=== PATIENT | male | born 1965 | race Caucasian/White ===

== ENCOUNTER 2019-10-07 17:40 | Observation (INO) ==
[2019-10-07] MEDS ORDERED: Isovue-370 500 ML BOTTLE IVP ONE (18:03)
[2019-10-07] MEDS ORDERED: Morphine Sulfate 2 MG/ML SYRINGE IVP ONE ×2 (18:10→19:53)
[2019-10-07 18:36] LABS: Basophils # 0.1 K/mcL (0.0-0.2); Basophils % 0.5 %; Eosinophils % 0.2 %; Hematocrit 37.6 % (37.5-50.1); Hemoglobin 13.5 g/dL (12.9-16.9); Immature Granulocytes % 0.7 % (0-4); Lymphocytes # 2.2 K/mcL (0.6-4.6); Lymphocytes % 14.1 %; Mean Corpuscular HGB Conc 35.9 g/dL (31.6-35.5); Mean Corpuscular Hemoglobin 29.9 pg (28.0-33.3); Mean Corpuscular Volume 83.2 fL (83.0-100.0); Mean Platelet Volume 10.5 fL (9.4-12.4); Monocytes # 1.5 K/mcL (0.0-1.3); Monocytes % 9.8 %; Neutrophils # 11.5 K/mcL (1.6-8.9); Platelet Count 259 K/mcL (140-400); Red Blood Count 4.52 M/mcL (4.19-5.50); Red Cell Distribution Width 13.6 % (11.5-14.5); Segmented Neutrophils % 74.7 %; White Blood Count 15.3 K/mcL (4.3-11.1)
[2019-10-07 18:46] LABS: INR 1.1; Prothrombin Time 12.8 Seconds (9.4-12.1)
[2019-10-07 18:49] LABS: Activated Partial Thrombo Time 29.2 Seconds (26.0-36.0)
[2019-10-07 18:58] LABS: Calcium 10.2 mg/dL (8.6-10.3); Potassium 4.1 mEq/L (3.5-5.1)
[2019-10-07 18:59] LABS: Troponin I 0.03 ng/mL (< 0.04)
[2019-10-07 19:05] LABS: Albumin 4.4 g/dL (3.5-5.7); Albumin/Globulin Ratio 1.5 (1.1-2.2); Bilirubin,Direct 0.3 mg/dL (0.0-0.2); Bilirubin,Indirect 1.5 mg/dL (0.0-1.0); Bilirubin,Total 1.8 mg/dL (0.3-1.0); Total Protein 7.4 g/dL (6.4-8.9)
[2019-10-07] MEDS ORDERED: 0.9 % Sodium Chloride 500 ML IVC ONE (19:31)
[2019-10-07 19:45] LABS: Bilirubin,Urine Negative (Negative); Blood,Urine Negative (Negative); Clarity,Urine Clear (Clear); Color,Urine Yellow (Yellow); Glucose,Urine (UA) Normal (Normal); Ketones,Urine Negative (Negative); Leukocyte Esterase,Urine Negative (Negative); Nitrite,Urine Negative (Negative); Protein,Urine Negative (Neg-Trace); Specific Gravity,Urine 1.016 (1.010-1.025); Urobilinogen,Urine Normal (Normal)
[2019-10-07] MEDS ORDERED: 0.9 % Sodium Chloride 1,000 ML IVC ONE (20:17)
[2019-10-07] MEDS: Nicotine 14 MG PATCH.TD24 TD SCH (20:25)
[2019-10-07] MEDS ORDERED: Naloxone 0.4 MG/ML INJ IVP PRN (20:35)
[2019-10-07] MEDS ORDERED: 0.9 % Sodium Chloride 1,000 ML IVC SCH (20:45)
[2019-10-07 22:03] LABS: Hematocrit 34.8 % (37.5-50.1); Hemoglobin 12.2 g/dL (12.9-16.9); Mean Corpuscular HGB Conc 35.1 g/dL (31.6-35.5); Mean Corpuscular Hemoglobin 30.2 pg (28.0-33.3); Mean Corpuscular Volume 86.1 fL (83.0-100.0); Mean Platelet Volume 10.1 fL (9.4-12.4); Platelet Count 215 K/mcL (140-400); Red Blood Count 4.04 M/mcL (4.19-5.50); Red Cell Distribution Width 13.4 % (11.5-14.5); White Blood Count 15.4 K/mcL (4.3-11.1)
[2019-10-07] MEDS ORDERED: Ondansetron 4 MG/2 ML VIAL IVP PRN (22:06)
[2019-10-07] MEDS ORDERED: Acetaminophen 325 MG TABLET PO PRN (22:06)
[2019-10-07] MEDS: Gabapentin 300 MG CAPSULE PO SCH (22:45)
[2019-10-07] MEDS: *HR* OxyCODONE/APAP 10/325 TABLET PO SCH (22:45)
[2019-10-07] MEDS: *HR* Heparin 5,000 UNIT/ML VIAL SQ SCH (22:45)
[2019-10-08] MEDS ORDERED: Acetaminophen IV 1,000 MG/100 ML INFUS..BTL IVPB ONE (03:03)
[2019-10-08] MEDS ORDERED: methylPREDNISolone 125 MG/2 ML VIAL IVP ONE (04:49)
[2019-10-08] MEDS: *HR* Heparin 5,000 UNIT/ML VIAL SQ SCH ×3 (06:25→21:15)
[2019-10-08] MEDS: *HR* OxyCODONE/APAP 10/325 TABLET PO SCH ×3 (09:07→21:15)
[2019-10-08] MEDS: Lisinopril-HCTZ 20-12.5mg TABLET PO SCH (09:07)
[2019-10-08] MEDS: Gabapentin 300 MG CAPSULE PO SCH ×3 (09:08→21:15)
[2019-10-08] MEDS: Nicotine 14 MG PATCH.TD24 TD SCH (09:08)
[2019-10-08 09:24] LABS: Alanine Aminotransferase 29 Units/L (7-52); Albumin 3.7 g/dL (3.5-5.7); Albumin/Globulin Ratio 1.4 (1.1-2.2); Alkaline Phosphatase 60 Units/L (34-104); Aspartate Amino Transferase 26 Units/L (13-39); BUN/Creatinine Ratio 25 (6-26); Bilirubin,Total 2.8 mg/dL (0.3-1.0); Blood Urea Nitrogen 28 mg/dL (6-20); Calcium 9.2 mg/dL (8.6-10.3); Carbon Dioxide 24 mEq/L (23-29); Chloride 104 mEq/L (98-107); Globulin 2.6 g/dL (2.4-3.5); Glucose 134 mg/dL (70-105); Osmolality,Calculated 287 (280-300); Sodium 135 mEq/L (136-145); Total Protein 6.3 g/dL (6.4-8.9); eGFR For African Americans > 60 (> 60); eGFR For Non-African Americans > 60 (> 60)
[2019-10-08] MEDS ORDERED: FLOVENT IH SCH (10:00)
[2019-10-08 10:32] LABS: Hemoglobin 12.2 g/dL (12.9-16.9); Mean Corpuscular HGB Conc 35.9 g/dL (31.6-35.5); Mean Corpuscular Hemoglobin 30.1 pg (28.0-33.3); Mean Platelet Volume 10.7 fL (9.4-12.4); Platelet Count 204 K/mcL (140-400); Red Blood Count 4.05 M/mcL (4.19-5.50); Red Cell Distribution Width 13.4 % (11.5-14.5); White Blood Count 11.8 K/mcL (4.3-11.1)
[2019-10-08] MEDS: *HR* OxyCODONE ER (12 HR) 20 MG TABLET PO SCH (15:02)
[2019-10-09] MEDS: *HR* OxyCODONE ER (12 HR) 20 MG TABLET PO SCH (03:20)
[2019-10-09] MEDS: *HR* Heparin 5,000 UNIT/ML VIAL SQ SCH (05:36)
[2019-10-09 07:37] VITALS: BP 115/73
[2019-10-09 07:43] LABS: Hematocrit 32.5 % (37.5-50.1); Hemoglobin 11.2 g/dL (12.9-16.9); Mean Corpuscular HGB Conc 34.5 g/dL (31.6-35.5); Mean Corpuscular Hemoglobin 29.8 pg (28.0-33.3); Mean Corpuscular Volume 86.4 fL (83.0-100.0); Mean Platelet Volume 10.2 fL (9.4-12.4); Platelet Count 199 K/mcL (140-400); Red Blood Count 3.76 M/mcL (4.19-5.50); Red Cell Distribution Width 13.7 % (11.5-14.5); White Blood Count 17.9 K/mcL (4.3-11.1)
[2019-10-09 08:01] LABS: BUN/Creatinine Ratio 30 (6-26); Blood Urea Nitrogen 28 mg/dL (6-20); Calcium 8.9 mg/dL (8.6-10.3); Carbon Dioxide 26 mEq/L (23-29); Chloride 107 mEq/L (98-107); Glucose 115 mg/dL (70-105); Osmolality,Calculated 290 (280-300); Potassium 3.5 mEq/L (3.5-5.1); Sodium 137 mEq/L (136-145); eGFR For African Americans > 60 (> 60); eGFR For Non-African Americans > 60 (> 60)
[2019-10-09] MEDS ORDERED: predniSONE 20 MG TABLET PO SCH (09:00)
[2019-10-09] MEDS: *HR* OxyCODONE/APAP 10/325 TABLET PO SCH (09:27)
[2019-10-09] MEDS: Nicotine 14 MG PATCH.TD24 TD SCH (09:27)
[2019-10-09] MEDS: Gabapentin 300 MG CAPSULE PO SCH (09:27)
[2019-10-09] MEDS: Lisinopril-HCTZ 20-12.5mg TABLET PO SCH (09:28)
[2019-10-09] MEDS ORDERED: *HR* OxyCODONE/APAP 10/325 TABLET PO PRN (09:32)
[2019-10-09] MEDS ORDERED: Budesonide/Formoterol 160/4.5 1 PUFF INH IH SCH (10:00)
[2019-10-09] MEDS ORDERED: ADALIMUMAB 40 MG SQ SCH (13:24)
== END 2019-10-09 11:35 | disposition home or self-care (01) ==
LOC: 2ANU 17:40 → EMEROOARM 17:40 → SUATTDRO 20:31 → 2ANU 21:02
PROVIDERS: ADMIT Internal Medicine; ATTEND Family Medicine

== ENCOUNTER 2022-08-01 15:51 | Observation (INO) ==
[2022-08-01] MEDS ORDERED: 0.9 % Sodium Chloride 1,000 ML IVC ONE ×2 (15:58→17:33)
[2022-08-01] MEDS ORDERED: *HR* Ticagrelor 90 MG TABLET PO ONE (15:58)
[2022-08-01] MEDS ORDERED: *HR* Heparin 5,000 UNIT/ML VIAL IVP ONE (15:59)
[2022-08-01] MEDS ORDERED: Iopamidol - 370 200 ML INFUS..BTL ONE (16:00)
[2022-08-01] MEDS ORDERED: *HR* Midazolam HCl 2 MG/2 ML VIAL ONE (16:00)
[2022-08-01] MEDS ORDERED: *HR* Heparin 10,000 UNIT/10 ML VIAL ONE (16:00)
[2022-08-01] MEDS ORDERED: *HR* FentaNYL (PF) 100 MCG/2 ML VIAL ONE (16:00)
[2022-08-01] MEDS ORDERED: Heparin 1,000 UNITS/500 mL 500 ML ONE (16:00)
[2022-08-01] MEDS ORDERED: 0.9 % Sodium Chloride 2,000 ML ONE (16:00)
[2022-08-01] MEDS ORDERED: Nitroglycerin 1,000 MCG/5 ML VIAL IV ONE (16:00)
[2022-08-01] MEDS ORDERED: 0.9 % Sodium Chloride 1,000 ML ONE (16:02)
[2022-08-01 16:14] LABS: Basophils # 0.1 K/mcL (0.0-0.2); Basophils % 0.8 %; Eosinophils # 0.3 K/mcL (0.0-0.6); Eosinophils % 1.5 %; Hematocrit 42.9 % (37.5-50.1); Hemoglobin 14.8 g/dL (12.9-16.9); Immature Granulocytes % 1.9 % (0-4); Lymphocytes # 2.7 K/mcL (0.6-4.6); Lymphocytes % 16.2 %; Mean Corpuscular HGB Conc 34.5 g/dL (31.6-35.5); Mean Corpuscular Hemoglobin 30.6 pg (28.0-33.3); Mean Corpuscular Volume 88.6 fL (83.0-100.0); Mean Platelet Volume 9.2 fL (9.4-12.4); Monocytes # 1.4 K/mcL (0.0-1.3); Monocytes % 8.4 %; Neutrophils # 11.9 K/mcL (1.6-8.9); Platelet Count 242 K/mcL (140-400); Red Blood Count 4.84 M/mcL (4.19-5.50); Red Cell Distribution Width 14.3 % (11.5-14.5); Segmented Neutrophils % 71.2 %; White Blood Count 16.8 K/mcL (4.3-11.1)
[2022-08-01 16:29] LABS: INR 1.1; Prothrombin Time 12.7 Seconds (9.4-12.1)
[2022-08-01 16:31] LABS: Activated Partial Thrombo Time 30.6 Seconds (26.0-36.0)
[2022-08-01 16:32] LABS: Heparin anti-factor XA UFH < 0.04 IU/mL (0.30-0.70)
[2022-08-01 16:34] LABS: Alanine Aminotransferase 32 Units/L (7-52); Albumin 3.7 g/dL (3.5-5.7); Albumin/Globulin Ratio 1.4 (1.1-2.2); Alkaline Phosphatase 79 Units/L (34-104); Aspartate Amino Transferase 21 Units/L (13-39); BUN/Creatinine Ratio 13 (6-26); Bilirubin,Total 0.7 mg/dL (0.3-1.0); Blood Urea Nitrogen 20 mg/dL (6-20); Carbon Dioxide 23 mEq/L (23-29); Chloride 104 mEq/L (98-107); Globulin 2.7 g/dL (2.4-3.5); Glucose 94 mg/dL (70-105); Magnesium 1.6 mg/dL (1.6-2.6); Osmolality,Calculated 284 (280-300); Potassium 3.8 mEq/L (3.5-5.1); Sodium 136 mEq/L (136-145); Total Protein 6.4 g/dL (6.4-8.9)
[2022-08-01 16:35] LABS: Troponin I < 0.03 ng/mL (< 0.04)
[2022-08-01] MEDS ORDERED: Ondansetron 4 MG/2 ML VIAL IVP PRN (16:57)
[2022-08-01] MEDS ORDERED: Naloxone 0.4 MG/ML INJ IVP PRN (16:57)
[2022-08-01] MEDS ORDERED: Acetaminophen 325 MG TABLET PO PRN (16:57)
[2022-08-01] MEDS ORDERED: Iopamidol - 370 500 ML MLS IVP ONE ×2 (16:59→17:25)
[2022-08-01] MEDS ORDERED: Ringers Solution, Lactated 1,000 ML IVC SCH (17:00)
[2022-08-01] MEDS ORDERED: Ipratropium/Albuterol Neb 3 ML IH PRN (17:00)
[2022-08-01] MEDS ORDERED: 0.9 % Sodium Chloride 1,000 ML IV ONE (17:26)
[2022-08-01] MEDS ORDERED: *HR* Heparin 5,000 UNIT/ML VIAL IVP PRN ×2 (17:34)
[2022-08-01] MEDS ORDERED: Heparin 25,000UNIT/250ML 1/2NS 25,000 UNIT/250 ML IV.SOLN IVC SCH (17:45)
[2022-08-01] MEDS ORDERED: ceFAZolin 1,000 MG in 0.9 % Sodium Chloride 10 ML IVP SCH (18:00)
[2022-08-01 18:02] LABS: Hematocrit 38.4 % (37.5-50.1); Hemoglobin 13.2 g/dL (12.9-16.9); Mean Corpuscular HGB Conc 34.4 g/dL (31.6-35.5); Mean Corpuscular Hemoglobin 30.5 pg (28.0-33.3); Mean Corpuscular Volume 88.7 fL (83.0-100.0); Mean Platelet Volume 9.2 fL (9.4-12.4); Platelet Count 229 K/mcL (140-400); Red Blood Count 4.33 M/mcL (4.19-5.50); Red Cell Distribution Width 14.2 % (11.5-14.5); White Blood Count 15.8 K/mcL (4.3-11.1)
[2022-08-01] MEDS ORDERED: Vancomycin 1,500 MG/265 ML IV.SOLN IVPB ONE (18:03)
[2022-08-01 18:05] LABS: Heparin anti-factor XA UFH 0.99 IU/mL (0.30-0.70); INR 1.2; Prothrombin Time 13.8 Seconds (9.4-12.1)
[2022-08-01] MEDS ORDERED: Vancomycin 1,500 MG/265 ML IV.SOLN IVPB SCH (18:45)
[2022-08-01] MEDS: *HR* HYDROcodone/Acet 5/325 mg TABLET PO PRN (21:11)
[2022-08-01] MEDS: Pregabalin 25 MG CAPSULE PO SCH (21:11)
[2022-08-01] MEDS: Ringers Solution, Lactated 1,000 ML IVC SCH (21:12)
[2022-08-01] MEDS: ceFAZolin 1,000 MG in 0.9 % Sodium Chloride 10 ML IVP SCH (21:23)
[2022-08-02] MEDS ORDERED: *HR* HYDROcodone/Acet 7.5/325 mg TABLET PO ONE (01:58)
[2022-08-02 02:11] LABS: Basophils # 0.1 K/mcL (0.0-0.2); Basophils % 1.1 %; Eosinophils # 0.3 K/mcL (0.0-0.6); Eosinophils % 2.5 %; Hematocrit 38.9 % (37.5-50.1); Hemoglobin 13.2 g/dL (12.9-16.9); Immature Granulocytes % 1.6 % (0-4); Lymphocytes # 3.9 K/mcL (0.6-4.6); Lymphocytes % 31.5 %; Mean Corpuscular HGB Conc 33.9 g/dL (31.6-35.5); Mean Corpuscular Hemoglobin 30.3 pg (28.0-33.3); Mean Corpuscular Volume 89.4 fL (83.0-100.0); Mean Platelet Volume 9.2 fL (9.4-12.4); Monocytes % 7.8 %; Neutrophils # 6.9 K/mcL (1.6-8.9); Platelet Count 218 K/mcL (140-400); Red Blood Count 4.35 M/mcL (4.19-5.50); Red Cell Distribution Width 14.3 % (11.5-14.5); Segmented Neutrophils % 55.5 %; White Blood Count 12.4 K/mcL (4.3-11.1)
[2022-08-02 02:31] LABS: Calcium 8.2 mg/dL (8.6-10.3); Magnesium 1.7 mg/dL (1.6-2.6); Phosphorous 2.7 mg/dL (2.7-4.5); Potassium 3.9 mEq/L (3.5-5.1)
[2022-08-02 05:07] VITALS: O2SAT 97
[2022-08-02] MEDS ORDERED: *HR* Ticagrelor 90 MG TABLET PO SCH (06:00)
[2022-08-02] MEDS: *HR* HYDROcodone/Acet 5/325 mg TABLET PO PRN (06:05)
[2022-08-02] MEDS: ceFAZolin 1,000 MG in 0.9 % Sodium Chloride 10 ML IVP SCH (06:06)
[2022-08-02] MEDS: Ringers Solution, Lactated 1,000 ML IVC SCH (06:06)
[2022-08-02 06:59] VITALS: PULSE 60; TEMP 98.2
[2022-08-02] MEDS ORDERED: *HR* OxyCODONE/APAP 10/325 TABLET PO PRN (07:45)
[2022-08-02] MEDS ORDERED: amLODIPine 5 MG TABLET PO ONE (08:04)
[2022-08-02] MEDS ORDERED: lamoTRIgine 100 MG TABLET PO SCH (09:00)
[2022-08-02] MEDS ORDERED: levoFLOXacin 750 MG TABLET PO SCH (09:00)
[2022-08-02] MEDS ORDERED: Aspirin Enteric Coated 81 MG Tablet PO SCH (09:00)
[2022-08-02] MEDS ORDERED: predniSONE 20 MG TABLET PO SCH (09:00)
[2022-08-02] MEDS ORDERED: Venlafaxine XR (24 HR) 150 MG CAP.ER.24H PO SCH (09:00)
[2022-08-02] MEDS ORDERED: BuPROPion XL (24 HR) 150 MG TABLET PO SCH (09:00)
[2022-08-02] MEDS: Pregabalin 25 MG CAPSULE PO SCH (09:17)
[2022-08-02 09:19] VITALS: BP 163/93
== END 2022-08-02 12:30 | disposition home or self-care (01) ==
LOC: EMEROOARM 15:51 → 2NNU 15:51
PROVIDERS: ADMIT Hospitalist; ATTEND Hospitalist